=== PATIENT | male | born 1990 | race Caucasian/White ===

== ENCOUNTER 2018-09-28 18:28 | Emergency (ER) | payer SELFPAY ==
[2018-09-28] MEDS ORDERED: Sodium Chloride 0.9% 1,000 ML IV ONE (18:54)
--- NOTE | 2018-09-28 18:58 | ED Physician Chart ---
ED Chief Complaint/HPI - Patient Information Allergies:: Allergies Allergy/AdvReac Type Severity Reaction Status Date / Time No Known Allergies Allergy Verified 09/28/18 18:56 Vitals:: Vital Signs - 8 hr 09/28/18 18:57 Temp 98.7 F HR 126 RR 20 BP 128/89 O2 Sat % 99 <Divine Gusman - Last Filed: 09/29/18 06:54> - Patient Information Date Seen:: 09/28/18 Time Seen:: 18:30 Chief Complaint:: AMS History of Present Illness:: pt presents with AMS after pt was found on the street with ALOC and brought to ER via EMS; no report of trauma, H/As, neck pain, C/P, SOB, Abd. Pain, or urinary s/s Historian:: Patient, EMS Review:: Nurse's Note Reviewed, Old Chart Reviewed, EMS run form Reviewed <Papo Cho - Last Filed: 09/29/18 13:51> ED Review of Systems - Review of Systems General/Constitutional: No fever, No chills, No weight loss, No weakness, No diaphoresis, No edema, No loss of appetite Skin: No skin lesions, No rash, No bruising Head: No headache, No light-headedness Eyes: No loss of vision, No pain, No diplopia ENT: No earache, No nasal drainage, No sore throat, No tinnitus Neck: No neck pain, No swelling, No thyromegaly, No stiffness, No mass noted Cardio Vascular: No chest pain, No palpitations, No PND, No orthopnea, No edema Pulmonary: No SOB, No cough, No sputum, No wheezing GI: No nausea, No vomiting, No diarrhea, No pain, No melena, No hematochezia, No constipation, No hematemesis G/U: No dysuria, No frequency, No hematuria, No nacturia Musculoskeletal: No bone or joint pain, No back pain, No muscle pain Endocrine: No polyuria, No polydipsia Psychiatric: No prior psych history, No depression, No anxiety, No suicidal ideation, No homicidal ideation, No auditory hallucination, No visual hallucination Hematopoietic: No bruising, No lymphadenopathy Allergic/Immuno: No urticaria, No angioedema Neurological: No syncope, No focal symptoms, No weakness, No paresthesia, No headache, No seizure, No dizziness, No confusion, No vertigo <Papo Cho - Last Filed: 09/29/18 13:51> ED Past Medical History - Past Medical History Obtainable: Yes Past Medical History: No significant medical hx Family History: None Social History: Smoker, Alcohol, No Drug Use, Single Surgical History: None Psychiatricy History: None Medication: Reviewed <Papo Cho - Last Filed: 09/29/18 13:51> Family Medical History - Family Member Father History Unknown: Yes <Divine Gusman - Last Filed: 09/29/18 06:54> ED Physical Exam - Physical Examination General/Constitutional: Awake, Well-developed, well-nourished, Alert, No distress, GCS 15, Non-toxic appearing, Ambulatory Head: Atraumatic Eyes: Lids, conjuctiva normal, PERRL, EOMI Other Eyes comments:: PERRLA; Fundi: benign; EOMs: WNL Skin: Nl inspection, No rash, No skin lesions, No ecchymosis, Well hydrated, No lymphadenopathy ENMT: External ears, nose nl, TM canals nl, Nasal exam nl, Lips, teeth, gums nl , Oropharynx nl, Tonsils nl Other ENMT comments:: TMJs: WNL Neck: Nontender, Full ROM w/o pain, No JVD, No nuchal rigidity, No bruit, No mass, No stridor Other Neck comments:: supple; no meningeal signs; no cervical tenderness; no bruits Respiratory: Nl effort/Exclusion, Clear to Auscultation, No Wheeze/Rhonchi/Rales Cardio Vascular: RRR, No murmur, gallop, rubs, NL S1 S2, Carotid/Femoral/Distal pulses equal bilaterally GI: No tenderness/rebounding/guarding, No organomegaly, No hernia, Normal BS's, Nondistended, No mass/bruits, No McBurney tenderness, Rectum exam nl Other GI comments:: no pulsatile masses; good BS : No CVA tenderness Extremities: No tenderness or effusion, Full ROM, normal strength in all extremities, No edema, Normal digits & nails Neuro/Psych: Alert/oriented, DTR's symmetric, Normal sensory exam, Normal motor strength, Judgement/insight normal, Mood normal, Normal gait, No focal deficits Other Neuro/Psych comments:: no focal signs Misc: Normal back, No paraspinal tenderness <Papo Cho - Last Filed: 09/29/18 13:51> ED Labs/Radiology/EKG Results - Lab Results Results: Laboratory Tests 09/28/18 19:22 WBC 12.1 H RBC 5.58 Hgb 16.3 Hct 49.0 MCV 87.9 MCH 29.2 MCHC Differential 33.3 RDW 12.8 Plt Count 214 MPV 8.1 Neutrophils % 84.6 H Lymphocytes % 9.9 L Monocytes % 4.5 Eosinophils % 0.6 Basophils % 0.4 Laboratory Last Values WBC 12.1 Th/cmm (4.8-10.8) H 09/28/18 19:22 RBC 5.58 Mil/cmm (4.30-5.70) 09/28/18 19:22 Hgb 16.3 gm/dL (12-16) 09/28/18 19: Hct 49.0 % (41.0-60) 09/28/18 19:22 MCV 87.9 fl (80-99) 09/28/18 19:22 MCH 29.2 pg (26.0-30.0) 09/28/18 19: MCHC Differential 33.3 pg (28.0-36.0) 09/28/18 19:22 RDW 12.8 % (11.5-20.0) 09/28/18 19:22 Plt Count 214 Th/cmm (150-400) 09/28/18 19:22 MPV 8.1 fl 09/28/18 19:22 Neutrophils % 84.6 % (40.0-80.0) H 09/28/18 19:22 Lymphocytes % 9.9 % (20.0-50.0) L 09/28/18 19: Monocytes % 4.5 % (2.0-10.0) 09/28/18: Eosinophils % 0.6 % (0.0-5.0) 09/28/18 19: Basophils % 0.4 % (0.0-2.0) 09/28/18 19: PT 10.2 SECONDS (9.5-11.5) 09/28/18 19: INR 0.98 (0.5-1.4) 09/28/18 19:22 Sodium 139 mEq/L (136-145) 09/28/18 19:22 Potassium 3.4 mEq/L (3.5-5.1) L 09/28/18 19:22 Chloride 103 mEq/L (98-107) 09/28/18 19:22 Carbon Dioxide 18.2 mEq/L (21.0-31.0) L 09/28/18 19:22 Anion Gap 21.2 (7.0-16.0) H 09/28/18 19:22 BUN 10 mg/dL (7-25) 09/28/18 19:22 Creatinine 0.9 mg/dL (0.7-1.3) 09/28/18 19:22 Est GFR ( Amer) > 60.0 ml/min (>90) 09/28/18 19:22 Est GFR (Non-Af Amer) > 60.0 ml/min 09/28/18 19:22 BUN/Creatinine Ratio 11.1 09/28/18 19:22 Glucose 122 mg/dL (70-105) H 09/28/18 19:22 Calcium 9.7 mg/dL (8.6-10.3) 09/28/18 19:22 Total Bilirubin 0.5 mg/dL (0.3-1.0) 09/28/18 19:22 AST 17 U/L (13-39) 09/28/18 19:22 ALT 24 U/L (7-52) 09/28/18 19:22 Alkaline Phosphatase 64 U/L (34-104) 09/28/18 19:22 Creatine Kinase 303 U/L (30-223) H 09/28/18 19:22 CK-MB (CK-2) 1.2 ng/mL (0.6-6.3) 09/28/18 19:22 Troponin I < 0.01 ng/mL (0.01-0.05) L 09/28/18 19:22 B-Natriuretic Peptide 14.7 pg/mL (5.0-100.0) 09/28/18 19:22 Total Protein 8.0 gm/dL (6.0-8.3) 09/28/18 19:22 Albumin 4.8 gm/dL (4.2-5.5) 04/09/19 19:22 Globulin 3.2 gm/dL 09/28/18 19:22 Albumin/Globulin Ratio 1.5 (1.0-1.8) 09/28/18 19:22 Triglycerides 178 mg/dL (<150) H 09/28/18 19:22 Cholesterol 186 mg/dL (<200) 09/28/18 19:22 LDL Cholesterol Direct 121 mg/dL (75-193) 09/28/18 19:22 HDL Cholesterol 52 mg/dL (23-92) 09/28/18 19:22 Amylase 67 U/L (29-103) 09/28/18 19:22 Lipase 11 U/L (11-82) 09/28/18 19:22 Urine Source [place] 09/28/18 23:10 Urine Color YELLOW 09/28/18 23:10 Urine Clarity HAZY (CLEAR) 09/28/18 23:10 Urine pH 5.5 (4.6 - 8.0) 09/28/18 23:10 Ur Specific [place] 1.010 (1.005-1.030) 09/28/18 23:10 Urine Protein NEGATIVE mg/dL (NEGATIVE) 09/28/18 23:10 Urine Glucose (UA) NEGATIVE mg/dL (NEGATIVE) 09/28/18 23:10 Urine Ketones NEGATIVE mg/dL (NEGATIVE) 09/28/18 23:10 Urine Blood LARGE (NEGATIVE) H 09/28/18 23:10 Urine Nitrate NEGATIVE (NEGATIVE) 09/28/18 23:10 Urine Bilirubin NEGATIVE (NEGATIVE) 09/28/18 23:10 Urine Urobilinogen 0.2 E.U./dL (0.2 - 1.0) 09/28/18 23:10 Ur Leukocyte Esterase NEGATIVE (NEGATIVE) 09/28/18 23:10 Urine RBC 0-2 /hpf (0-5) H 09/28/18 23:10 Urine WBC 0-2 /hpf (0-5) 09/28/18 23:10 Ur Epithelial Cells RARE /lpf (FEW) 09/28/18 23:10 Urine Bacteria OCCASIONAL /hpf (NONE SEEN) 09/28/18 23:10 Urine Opiates Screen NEGATIVE (NEGATIVE) 09/28/18 23:10 Urine Methadone Screen NEGATIVE (NEGATIVE) 09/28/18 23:10 Ur Barbiturates Screen NEGATIVE (NEGATIVE) 09/28/18 23:10 Ur Tricyclics Screen NEGATIVE (NEGATIVE) 09/28/18 23:10 Ur Phencyclidine Scrn NEGATIVE (NEGATIVE) 09/28/18 23:10 Amphetamines Screen NEGATIVE (NEGATIVE) 09/28/18 23:10 U Methamphetamines Scrn NEGATIVE (NEGATIVE) 09/28/18 23:10 U Benzodiazepines Scrn POSITIVE (NEGATIVE) H 09/28/18 23:10 U Cocaine Metab Screen NEGATIVE (NEGATIVE) 09/28/18 23:10 U Cannabinoids Screen POSITIVE (NEGATIVE) H 09/28/18 23:10 Ethyl Alcohol 98 mg/dL (0-10) H 09/29/18 06:05 <Divine Gusman - Last Filed: 09/29/18 06:54> - Lab Results Comments:: Reviewed - Radiology Results Comments:: C-Spine CT Scan/Head CT Scan: deferred by pt <Papo Cho - Last Filed: 09/29/18 13:51> ED Septic Shock - . Is Septic Shock (SBP<90, OR Lactate>4 mmol\L) present?: No - <6hrs of presentation: Vital Signs: Vital Signs - 8 hr 09/28/18 18:57 Temp 98.7 F HR 126 RR 20 BP 128/89 O2 Sat % 99 <Divine Gusman - Last Filed: 09/29/18 06:54> - . Is Septic Shock (SBP<90, OR Lactate>4 mmol\L) present?: No <Papo Cho - Last Filed: 09/29/18 13:51> ED Reassessment (Disposition) - Reassessment Reassessment:: Pt became extremely violent towards [employer] officers at ER, yelling and screaming. Gave ativan 2mg IM, benadryl 50mg IM and haldol 5mg IM. Urine drug screen was positive for benzo and THC. His potassium was low. He received 1.6 L of NS. Blood etoh level was high. After slept overnight, pt became awake, alert and oriented. KCL 40 mEq was given. D/c pt to [employer]'s custody. Reassessment Condition:: Improved - Diagnosis Diagnosis:: Polysubstance abuse - Patient Disposition Discharge/Transfer:: To [employer]'s custody <Divine Gusman - Last Filed: 09/29/18 06:54> - Reassessment Reassessment Condition:: Improved - Diagnosis Diagnosis:: AMS; ALOC; ETOH Intoxication/Abuse; Substance Abuse - Aftercare/Follow up Instructions Aftercare/Follow-Up Instructions:: Counseled pt regarding lab results/diagnosis & need follow up, Refer to Discharge Instructions, Counseled pt & family regarding lab results/diagnosis & need follow up Notes:: pt tolerated po fluids well in ER; pt is asymptomatic upon discharge - Patient Disposition Condition at Disposition:: Stable, Improved (RTER prn if existing s/s reoccur and/or get worse and/or any other new s/s occur; ACIs given for all above Dx; Refer to Psychiatrist/Hotel Associate [facility]; Refer to [facility]; F/U with PMD in one day or prn; RTER prn if concerned) <Papo Cho - Last Filed: 09/29/18 13:51>
[2018-09-28 19:30] LABS: % BASOPHILS 0.4 % (0.0-2.0); % EOSINOPHILS 0.6 % (0.0-5.0); % LYMPHOCYTES 9.9 % (20.0-50.0); % MONOCYTES 4.5 % (2.0-10.0); % NEUTROPHILS 84.6 % (40.0-80.0); EOSINOPHILE ABSOLUTE 0.1 Th/cmm (0.1-0.4); HEMOGLOBIN 16.3 gm/dL (12-16); LYMPHOCYTE ABSOLUTE 1.2 Th/cmm (1.5-3.0); MEAN CELL VOLUME 87.9 fl (80-99); MEAN CORPUSCULAR HEMOGLOBIN 29.2 pg (26.0-30.0); MEAN CORPUSCULAR HGB CONC 33.3 pg (28.0-36.0); MEAN PLATELET VOLUME 8.1 fl; MONOCYTE ABSOLUTE 0.5 Th/cmm (0.3-1.0); NEUTROPHILE ABSOLUTE 10.3 Th/cmm (1.8-8.0); PLATELET COUNT 214 Th/cmm (150-400); RED BLOOD COUNT 5.58 Mil/cmm (4.30-5.70); RED CELL DISTRIBUTION WIDTH 12.8 % (11.5-20.0); WHITE BLOOD COUNT 12.1 Th/cmm (4.8-10.8)
[2018-09-28] MEDS ORDERED: Haloperidol Lactate 5 mg/mL 1mL Vial IVP ONE (19:46)
[2018-09-28 19:47] LABS: ALB/GLOB RATIO 1.5 (1.0-1.8); ALBUMIN 4.8 gm/dL (4.2-5.5); ALKALINE PHOSPHATASE 64 U/L (34-104); ANION GAP 21.2 (7.0-16.0); BILIRUBIN,TOTAL 0.5 mg/dL (0.3-1.0); BUN - UREA NITROGEN 10 mg/dL (7-25); CALCIUM SERUM 9.7 mg/dL (8.6-10.3); CARBON DIOXIDE 18.2 mEq/L (21.0-31.0); CHLORIDE 103 mEq/L (98-107); CHOLESTEROL 186 mg/dL (<200); CREATININE - SERUM 0.9 mg/dL (0.7-1.3); CREATININE KINASE 303 U/L (30-223); GFR AFRICAN-AMERICAN > 60.0 ml/min (>90); GFR NON AFRICAN-AMERICAN > 60.0 ml/min; GLUCOSE 122 mg/dL (70-105); HDL -HIGH DENSITY LIPOPROTEIN 52 mg/dL (23-92); POTASSIUM SERUM 3.4 mEq/L (3.5-5.1); SGOT 17 U/L (13-39); SGPT/ALT 24 U/L (7-52); SODIUM SERUM 139 mEq/L (136-145); TRIGLYCERIDES 178 mg/dL (<150)
[2018-09-28 19:49] LABS: AMYLASE SERUM 67 U/L (29-103); LIPASE 11 U/L (11-82)
[2018-09-28] MEDS ORDERED: Haloperidol Lactate 5 mg/mL 1mL Vial ONE (19:50)
[2018-09-28 19:51] LABS: INR 0.98 (0.5-1.4); PROTHROMBIN TIME (TEST) 10.2 SECONDS (9.5-11.5)
[2018-09-28] MEDS ORDERED: Haloperidol Lactate 5 mg/mL 1mL Vial IM STA (19:51)
[2018-09-28 23:20] LABS: URINE SOURCE FOLEY PORT
[2018-09-28 23:36] LABS: AMPHETAMINE URINE NEGATIVE (NEGATIVE); BARBITURATES URINE NEGATIVE (NEGATIVE); BENZODIAZEPINES QUAL URINE POSITIVE (NEGATIVE); CANNABINOID THC POSITIVE (NEGATIVE); COCAINE METABOLITE QUAL URINE NEGATIVE (NEGATIVE); METHADONE URINE NEGATIVE (NEGATIVE); METHAMPHETAMINES QUAL URINE NEGATIVE (NEGATIVE); OPIATES (MORPHINE) QUAL. URINE NEGATIVE (NEGATIVE); PHENCYCLIDINE (PCP) URINE NEGATIVE (NEGATIVE); TRICYCLICS (TCA) QUAL. URINE NEGATIVE (NEGATIVE)
[2018-09-28 23:41] LABS: URINE BILIRUBIN NEGATIVE (NEGATIVE); URINE BLOOD LARGE (NEGATIVE); URINE CLARITY HAZY (CLEAR); URINE COLOR YELLOW; URINE GLUCOSE (UA) NEGATIVE (NEGATIVE); URINE KETONE NEGATIVE (NEGATIVE); URINE LEUKOCYTE ESTERASE NEGATIVE (NEGATIVE); URINE MICROSCOPIC INDICATED? YES; URINE NITRATE NEGATIVE (NEGATIVE); URINE PH 5.5 (4.6 - 8.0); URINE PROTEIN NEGATIVE (NEGATIVE); URINE UROBILINOGEN 0.2 E.U./dL (0.2 - 1.0)
[2018-09-28 23:42] LABS: URINE BACTERIA OCCASIONAL /hpf (NONE SEEN); URINE EPITHELIAL CELLS RARE /lpf (FEW); URINE RBC 0-2 /hpf (0-5); URINE WBC 0-2 /hpf (0-5)
[2018-09-29] MEDS ORDERED: Potassium Chloride 20 mEq ER Tab PO ONE ×2 (06:37→06:44)
== END 2018-09-29 09:15 | disposition home or self-care (01) ==
LOC: ER 18:28
DX: F10.129 Alcohol abuse with intoxication, unspecified (principal); F19.10 Other psychoactive substance abuse, uncomplicated; R41.82 Altered mental status, unspecified; F17.200 Nicotine dependence, unspecified, uncomplicated; Y90.4 Blood alcohol level of 80-99 mg/100 ml
CPT/HCPCS: 99283; 96361; 96372 ×3; 96374; 84484; 83880; 36415 ×2; 80307; 85025; 85610; 81001; 80320 ×2; 82150; 82550; 82553; 83690; 80053; 80061; J2060; J2405; 94760; J1200; J1630; J7030; Z7502; Z7610